=== PATIENT | female | born 1985 | race African-American/Black ===

== ENCOUNTER 2021-01-06 07:04 | Inpatient (IN) | payer OTHER ==
[2021-01-06] MEDS ORDERED: BUTORPHANOL TARTRATE 1 MG/ML VIAL IVPB PRN (08:02)
[2021-01-06] MEDS: BUTORPHANOL TARTRATE 1 MG/ML VIAL IVPB SCH ×3 (08:15→16:15)
[2021-01-06] MEDS ORDERED: DINOPROSTONE 10 MG VAGINAL SUPPOSITORY VG ONE (08:15)
[2021-01-06 08:59] LABS: BASO % 0.2 % (0-2.0); HEMATOCRIT 31.2 % (32.4-45.2); HEMOGLOBIN 10.5 GM/dL (10.7-15.3); LYMPH % 21.3 % (8-40); MCH 28.9 pg (25.7-33.7); MCHC 33.6 g/dl (32.0-36.0); MEAN CELL VOLUME 86.2 fl (80-96); MEAN PLT VOLUME 7.9 fl (7.5-11.1); MONO % 12.3 % (3.8-10.2); NEUT % 65.2 % (42.8-82.8); PLATELET COUNT 192 10^3/uL (134-434); RBC 3.62 M/mm3 (3.60-5.2); RDW 18.2 % (11.6-15.6)
[2021-01-06 09:12] LABS: INR 0.91 (0.83-1.09); PROTHROMBIN TIME (PATIENT) 11.2 SEC (9.7-13.0)
[2021-01-06 09:14] LABS: ACTIVATED PTT 24.3 SECONDS (25.2-36.5)
[2021-01-06 09:18] LABS: CALCIUM 7.8 mg/dL (8.5-10.1)
[2021-01-06 09:22] LABS: CREATININE 0.6 mg/dL (0.55-1.3)
[2021-01-06 09:37] VITALS: BMI 37.2
[2021-01-06] MEDS: ELECTROLYTE-148 SOLN 1,000 ML IV SCH (17:10)
[2021-01-06] MEDS ORDERED: OXYTOCIN 30 UNITS in 0.9% NS 30 UNIT/500 ML INFUS.BAG IVPB SCH (21:45)
[2021-01-06] MEDS ORDERED: OXYTOCIN 30 UNITS in 0.9% NS 30 UNIT/500 ML INFUS.BAG IVPB ONE (22:29)
[2021-01-07] MEDS: BUTORPHANOL TARTRATE 1 MG/ML VIAL IVPB SCH ×3 (00:15→07:00)
[2021-01-07] MEDS ORDERED: FENTANYL/BUPIVACAINE/NS/PF - PCEA - 50 ML DISP.SYRIN EP ONE (06:37)
[2021-01-07] MEDS ORDERED: BUPIVACAINE HCL/PF 0.25% (2.5MG/ML) 10 ML VIAL ONE (07:07)
[2021-01-07] MEDS ORDERED: PCA PUMP NR ONE (07:13)
[2021-01-07] MEDS ORDERED: NALOXONE HCL 0.4 MG/ML VIAL IVPUSH PRN (07:31)
[2021-01-07] MEDS ORDERED: FENTANYL/BUPIVACAINE/NS/PF - PCEA - 50 ML DISP.SYRIN EP SCH (07:45)
[2021-01-07] MEDS: ELECTROLYTE-148 SOLN 1,000 ML IV SCH (08:15)
[2021-01-07] MEDS ORDERED: SIMETHICONE 80 MG TAB.CHEW (FP) PO PRN (08:28)
[2021-01-07] MEDS ORDERED: METHYLERGONOVINE MALEATE 0.2 MG/1 ML AMP IM PRN (08:28)
[2021-01-07] MEDS ORDERED: IBUPROFEN 800 MG/8 ML IJ IVPB PRN (08:29)
[2021-01-07] MEDS ORDERED: ACETAMINOPHEN 325 MG TABLET (FP) PO PRN (08:29)
[2021-01-07] MEDS ORDERED: WITCH HAZEL 50% (TUCKS) 40 PAD/JAR PAD TP PRN (08:29)
[2021-01-07] MEDS ORDERED: OXYTOCIN 20 UNITS in 0.9% NS 20 UNIT/1,000 ML INFUS.BAG IV SCH (08:30)
[2021-01-07] MEDS ORDERED: SENNOSIDES/DOCUSATE COMBO (SENNA PLUS) TABLET (UD) PO PRN (08:32)
[2021-01-07] MEDS ORDERED: OXYTOCIN 20 UNITS in 0.9% NS 20 UNIT/1,000 ML INFUS.BAG IV ONE (11:11)
[2021-01-07 12:31] LABS: CORD BASE EXCESS -4.9 mmol/L (0-2); CORD HCO3 20.6 mmHg (20-29); CORD pH 7.33 (7.14-7.44)
[2021-01-07 12:34] LABS: CORD HCO3 20.4 mmHg (20-29); CORD PCO2 39.6 mmHg (30-78); CORD pH 7.33 (7.14-7.44)
[2021-01-07] MEDS ORDERED: IBUPROFEN 600 MG TABLET (FP) PO ONE (14:11)
[2021-01-07] MEDS: IBUPROFEN 600 MG TABLET (FP) PO PRN ×2 (14:15→18:25)
[2021-01-08] MEDS: IBUPROFEN 600 MG TABLET (FP) PO PRN ×3 (05:57→21:11)
[2021-01-08] MEDS ORDERED: BISACODYL 10 MG SUPP.RECT RC PRN (08:28)
[2021-01-08] MEDS ORDERED: oxyCODONE HCL 5 MG TABLET PO PRN ×2 (08:28→08:29)
[2021-01-08] MEDS: PRENATAL VITAMINS W/ FOLIC ACID TABLET (FP) PO SCH (09:48)
[2021-01-08 10:05] LABS: BASO % 0.3 % (0-2.0); EOS % 1.1 % (0-4.5); HEMATOCRIT 26.7 % (32.4-45.2); HEMOGLOBIN 8.9 GM/dL (10.7-15.3); LYMPH % 17.3 % (8-40); MCHC 33.5 g/dl (32.0-36.0); MEAN CELL VOLUME 86.5 fl (80-96); MEAN PLT VOLUME 8.1 fl (7.5-11.1); MONO % 11.1 % (3.8-10.2); NEUT % 70.2 % (42.8-82.8); PLATELET COUNT 165 10^3/uL (134-434); RBC 3.09 M/mm3 (3.60-5.2); RDW 18.7 % (11.6-15.6); WHITE BLOOD COUNT 5.8 K/mm3 (4.0-10.0)
[2021-01-08 16:13] LABS: BASO % 0.4 % (0-2.0); EOS % 2.1 % (0-4.5); HEMOGLOBIN 9.5 GM/dL (10.7-15.3); LYMPH % 19.7 % (8-40); MCH 29.2 pg (25.7-33.7); MCHC 33.7 g/dl (32.0-36.0); MEAN CELL VOLUME 86.4 fl (80-96); MEAN PLT VOLUME 8.2 fl (7.5-11.1); MONO % 13.6 % (3.8-10.2); NEUT % 64.2 % (42.8-82.8); PLATELET COUNT 174 10^3/uL (134-434); RBC 3.24 M/mm3 (3.60-5.2); RDW 18.5 % (11.6-15.6); WHITE BLOOD COUNT 5.8 K/mm3 (4.0-10.0)
[2021-01-09] MEDS: PRENATAL VITAMINS W/ FOLIC ACID TABLET (FP) PO SCH (09:04)
[2021-01-09] MEDS: IBUPROFEN 600 MG TABLET (FP) PO PRN (09:04)
[2021-01-09 11:05] VITALS: BP 136/84; PULSE 70; TEMP 98.4
== END 2021-01-09 13:35 | disposition home or self-care (01) | DRG 560 ==
LOC: JLDR 07:04 → J3W 01-07 14:20
PROVIDERS: ADMIT Obstetrics & Gynecology; ATTEND Obstetrics & Gynecology
PROC: 3E0P7VZ Introduction of Hormone into Female Reproductive, Via Natural or Artificial Opening (ICD-10-PCS; 2021-01-06)
PROC: 10E0XZZ Delivery of Products of Conception, External Approach (ICD-10-PCS; principal; 2021-01-07)
DX: O13.4 Gestational [pregnancy-induced] hypertension without significant proteinuria, complicating childbirth (principal); O99.214 Obesity complicating childbirth; E66.9 Obesity, unspecified; O99.03 Anemia complicating the puerperium; D64.89 Other specified anemias; O99.892 Other specified diseases and conditions complicating childbirth; R00.0 Tachycardia, unspecified; Z3A.39 39 weeks gestation of pregnancy; Z37.0 Single live birth
CPT/HCPCS: 36415; 36600; 59409; 80048; 82803; 85025; 85610; 85730; 86780; 86850; 86900; 86901; 87340; C9803; U0003; U0005